=== PATIENT | female | born 1995 | race Caucasian/White ===

== ENCOUNTER 2019-08-22 00:28 | Emergency (ER) | payer SELFPAY ==
[~2019-08-22] VITALS: Ht 152.4 cm; Wt 63.0 kg
[2019-08-22 00:32] VITALS: Ht 152.4 cm; Wt 63.0 kg
[2019-08-22 01:48] VITALS: BP 121/79
== END 2019-08-22 01:48 | disposition home or self-care (01) ==
LOC: ED 00:28
DX: S39.012A Strain of muscle, fascia and tendon of lower back, initial encounter (principal); S80.02XA Contusion of left knee, initial encounter; V49.59XA Passenger injured in collision with other motor vehicles in traffic accident, initial encounter; Y93.I9 Activity, other involving external motion; Y92.413 State road as the place of occurrence of the external cause; Y99.8 Other external cause status
CPT/HCPCS: J1885